=== PATIENT | female | born 1975 | race Two or more races ===

== ENCOUNTER 2018-08-21 17:33 | Emergency (ER) | payer MEDICAID, OTHER ==
[~2018-08-21] VITALS: Ht 170.2 cm; Wt 81.6 kg
[2018-08-21 19:36] VITALS: BP 115/71
[2018-08-21] MEDS ORDERED: FLUORESCEIN SOD 1 MG TEST STRIP EACHEYE ONE (19:45)
[2018-08-21] MEDS ORDERED: TETRACAINE HCL 0.5% OPTH(EYE) SOLN 4ML EACHEYE ONE (19:45)
[2018-08-21] MEDS ORDERED: GENTAMICIN OPTH sol 0.3% 5ml EACHEYE ONE (19:45)
[2018-08-21] MEDS ORDERED: GENTAMICIN OPTH sol 0.3% 5ml ONE (19:47)
[2018-08-21] MEDS ORDERED: cefTRIAXone SOD 1,000 MG VL ONE (20:34)
[2018-08-21] MEDS ORDERED: cefTRIAXone SOD 1,000 MG VL IM ONE (20:45)
[2018-08-21 20:58] LABS: Hepatitis B Surface Antibody Negative
[2018-08-21 22:04] LABS: Hepatitis B Surface Antigen Negative (Negative)
== END 2018-08-22 01:07 | disposition home or self-care (01) ==
LOC: ER 17:38
DX: H16.001 Unspecified corneal ulcer, right eye (principal); Z77.21 Contact with and (suspected) exposure to potentially hazardous body fluids
CPT/HCPCS: 36415; 86703; 86706; 86803; 87340; 96372; 99284; J0696

== ENCOUNTER 2018-08-26 10:43 | Emergency (ER) | payer OTHER ==
[~2018-08-26] VITALS: Ht 170.2 cm; Wt 93.0 kg
[2018-08-26 10:52] VITALS: BP 116/65
== END 2018-08-26 12:08 | disposition home or self-care (01) ==
LOC: ER 10:49
DX: H16.001 Unspecified corneal ulcer, right eye (principal)

== ENCOUNTER 2018-09-29 13:05 | Emergency (ER) | payer MEDICAID, OTHER ==
[~2018-09-29] VITALS: Ht 162.6 cm; Wt 81.6 kg
[2018-09-29 14:51] VITALS: BP 134/83
== END 2018-09-29 15:23 | disposition home or self-care (01) ==
LOC: ER 13:08
DX: R06.02 Shortness of breath (principal)
CPT/HCPCS: 71046